=== PATIENT | female | born 2000 | race Caucasian/White ===

== ENCOUNTER 2022-11-07 21:55 | Emergency (ER) | payer MEDICAID ==
[~2022-11-07] VITALS: Ht 162.6 cm; Wt 61.4 kg
[2022-11-07 23:37] VITALS: BP 128/72
[2022-11-07] MEDS ORDERED: SULF1TAB45 PO ×2 (23:43→23:48)
[2022-11-07] MEDS ORDERED: sulfamethoxazole/trimethoprim DS (800/160mg) tablet PO ONE (23:45)
== END 2022-11-08 00:11 | disposition home or self-care (01) ==
LOC: ER 21:55
DX: L02.01 Cutaneous abscess of face (principal)
CPT/HCPCS: 99283

== ENCOUNTER 2023-07-13 08:01 | Emergency (ER) | payer MEDICAID ==
[~2023-07-13] VITALS: Ht 180.3 cm; Wt 70.0 kg
[~2023-07-13 08:01] MED LIST: SULF1TAB45 PO
[2023-07-13 08:09] VITALS: BP 130/69; PULSE 89; RESP 18; TEMP 98.2; O2SAT 98
[2023-07-13] MEDS ORDERED: CEPH-585 PO (08:30)
[2023-07-13] MEDS ORDERED: SULF1TAB45 PO (08:30)
== END 2023-07-13 08:38 | disposition home or self-care (01) ==
LOC: ER 08:01
DX: H00.031 Abscess of right upper eyelid (principal)
CPT/HCPCS: 99283

== ENCOUNTER 2024-02-15 03:50 | Emergency (ER) | payer MEDICAID ==
[~2024-02-15] VITALS: Ht 162.6 cm; Wt 59.1 kg
[~2024-02-15 03:50] MED LIST changes: +CEPH-585 PO
[2024-02-15] MEDS: clindamycin 150mg capsule PO ONE (04:30)
[2024-02-15] MEDS: ondansetron 4mg rapidly disintigrating tab PO ONE (04:31)
[2024-02-15] MEDS: LIDOcaine 2% Viscous 15ml cup MM ONE (04:32)
[2024-02-15] MEDS: LORazepam 2 mg/ml vial IM ONE (04:39)
[2024-02-15] MEDS ORDERED: CLIN300C71 PO (05:35)
[2024-02-15 06:14] VITALS: BP 107/64; PULSE 102; RESP 16; TEMP 98.7; O2SAT 98
== END 2024-02-15 06:24 | disposition home or self-care (01) ==
LOC: ER 03:52
DX: J36 Peritonsillar abscess (principal); Z79.2 Long term (current) use of antibiotics
CPT/HCPCS: 42700; 96372; 99285; J2060